=== PATIENT | male | born 1945 | race Caucasian/White ===

== ENCOUNTER 2018-07-24 09:53 | Emergency (ER) | payer MEDICARE ==
--- NOTE | 2018-07-24 10:09 | PHYS DOC ---
Adult General Chief Complaint Chief Complaint: DIZZY/LIGHT HEADED HPI HPI 73-year-old male presents via EMS after at the [facility] of lightheadedness and dizziness. 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 The patient usually is very active and never sits down. He felt like he should sit down at that time. He sat down in the break room and some of the employees came in and did not think that he looked all that good. The boss came in and found the patient should go to the hospital. The patient states that he wasn't having chest pain or headache, just feeling lightheaded mostly. He has not had episodes like this before that he remembers. He is feeling normal at this time. He's been eating and drinking normally. He has not been feeling ill prior to this episode. He denies fever or chills. He does have a history of aortic aneurysm. Review of Systems Review of Systems Constitutional: Denies fever or chills [] Eyes: Denies change in visual acuity, redness, or eye pain [] HENT: Denies nasal congestion or sore throat [] Respiratory: Denies cough or shortness of breath [] Cardiovascular: No additional information not addressed in HPI [] GI: Denies abdominal pain, nausea, vomiting, bloody stools or diarrhea [] : Denies dysuria or hematuria [] Musculoskeletal: Denies back pain or joint pain [] Integument: Denies rash or skin lesions [] Neurologic: Dizziness. Denies headache, focal weakness or sensory changes [] Endocrine: Denies polyuria or polydipsia [] All other systems were reviewed and found to be within normal limits, except as documented in this note. Physical Exam Physical Exam Constitutional: Well developed, well nourished, no acute distress, non-toxic appearance. [] HENT: Normocephalic, atraumatic, bilateral external ears normal, oropharynx moist, no oral exudates, nose normal. [] Eyes: PERRLA, EOMI, conjunctiva normal, no discharge. [] Neck: Normal range of motion, no tenderness, supple, no stridor. [] Cardiovascular:Heart rate regular rhythm, no murmur [] Lungs & Thorax: Bilateral breath sounds clear to auscultation [] Abdomen: Bowel sounds normal, soft, no tenderness, no masses, no pulsatile masses. [] Skin: Warm, dry, no erythema, no rash. [] Back: No tenderness, no CVA tenderness. [] Extremities: No tenderness, no cyanosis, no clubbing, ROM intact, no edema. [] Neurologic: Alert and oriented X 3, normal motor function, normal sensory function, no focal deficits noted. [] Psychologic: Affect normal, judgement normal, mood normal. [] EKG EKG Sinus rhythm, rate 70, leftward axis, no ST elevations or depressions.[] Radiology/Procedures Radiology/Procedures [] Impressions: CT of the head without contrast, 07/24/2018: HISTORY: Dizziness There is mild cerebral atrophy with mild associated prominence of the lateral ventricles. There is no shift of the midline structures. There is no evidence of acute intracranial hemorrhage or mass effect. IMPRESSION: No acute intracranial abnormality is detected. [facility] Compliance Statement: One or more of the following individualized dose reduction techniques were utilized for this examination: 1. Automated exposure control 2. Adjustment of the mA and/or kV according to patient size 3. Use of iterative reconstruction technique Electronically signed by: Carlin Cavazos MD (07/24/2018 10:29 AM) [facility] DICTATED AND SIGNED BY: CARLIN CAVAZOS MD DATE: 07/24/18 1029 CC: ANGEL GAY DO; PCP,NO ~ EXAM: CHEST 1 VIEW History: Dizziness COMPARISON: None available. TECHNIQUE: Single portable radiograph of the chest FINDINGS: The cardiac silhouette is unremarkable. Median sternotomy wires identified. Mild hyperinflated lungs likely changes of COPD. A 9 mm nodule or scar identified in the right upper lobe of the lung. IMPRESSION: 1. A 9 mm nodule or scar identified in the right lung. Otherwise, no acute cardiopulmonary findings. Electronically signed by: Juan Bettencourt MD (07/24/2018 10:45 AM) [facility] DICTATED AND SIGNED BY: JUAN BETTENCOURT MD DATE: 07/24/18 1045 CC: ANGEL GAY DO; PCP,NO ~ Course & Med Decision Making Course & Med Decision Making Pertinent Labs and Imaging studies reviewed. (See chart for details) The patient's head CT is unremarkable. His chest x-ray is remarkable for a 9 mm nodule that could be a scar. Likely COPD changes. He can follow this up with his primary care physician. His labs are unremarkable. His troponin is negative. His EKG is unremarkable. I suspect the patient might have had a run of atrial fibrillation. 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 I have encouraged him to keep that appointment. I will be safely discharged this time. If his symptoms return or new symptoms develop, he will return to the emergency room. [] Dragon Disclaimer Dragon Disclaimer This electronic medical record was generated, in whole or in part, using a voice recognition dictation system. Departure Departure: Impression: Primary Impression: Dizziness Disposition: 01 HOME, SELF-CARE Condition: IMPROVED Referrals: [facility] (PCP) Patient Instructions: Atrial Fibrillation, [id number], Dizziness, [id number] ANGEL GAY DO Jul 24, 2018 10:09
[2018-07-24 10:13] LABS: BASO % 1 % (0-3); EOS # 0.2 x10^3/uL (0.0-0.7); EOS % 3 % (0-3); HEMATOCRIT 43.1 % (39.0-53.0); HEMOGLOBIN 14.7 g/dL (13.0-17.5); LYMPH # 2.1 x10^3/uL (1.0-4.8); LYMPH % 28 % (24-48); MEAN CORPUSCULAR HEMOGLOBIN 32 pg (25-35); MEAN CORPUSCULAR HGB CONC 34 g/dL (31-37); MEAN CORPUSCULAR VOLUME 92 fL (79-100); MONO # 0.7 x10^3/uL (0.0-1.1); MONO % 10 % (0-9); NEUT # 4.3 x10^3uL (1.8-7.7); NEUT % 58 % (31-73); PLATELET COUNT 228 x10^3/uL (140-400); RED BLOOD COUNT 4.67 x10^6/uL (4.30-5.70); WHITE BLOOD COUNT 7.3 x10^3/uL (4.0-11.0)
--- NOTE | 2018-07-24 10:32 | RAD ---
CT of the head without contrast, 07/24/2018: HISTORY: Dizziness There is mild cerebral atrophy with mild associated prominence of the lateral ventricles. There is no shift of the midline structures. There is no evidence of acute intracranial hemorrhage or mass effect. IMPRESSION: No acute intracranial abnormality is detected. [facility] Compliance Statement: One or more of the following individualized dose reduction techniques were utilized for this examination: 1. Automated exposure control 2. Adjustment of the mA and/or kV according to patient size 3. Use of iterative reconstruction technique Electronically signed by: Carlin Girard MD (07/24/2018 10:29 AM) [facility]
[2018-07-24 10:34] LABS: ALBUMIN 3.6 g/dL (3.4-5.0); CALCIUM 9.4 mg/dL (8.5-10.1); CREATININE 1.3 mg/dL (0.7-1.3); GFR 54.3; TOTAL BILIRUBIN 0.5 mg/dL (0.2-1.0); TOTAL PROTEIN 7.3 g/dL (6.4-8.2)
--- NOTE | 2018-07-24 10:40 | EKG ---
[address] [address] Test Date: 2018-07-24 Test Time: 10:30:33 Pat Name: WONG SCHULTE Department: Room: Gender: M Featherer: : 1945 Requested By: ANGEL GAY Order Number: [id number] Reading MD: Yasir Woodson Measurements Intervals [place] Rate: 70 P: 50 SC: 186 QRS: -10 QRSD: 84 T: 25 QT: 388 QTc: 422 Interpretive Statements SINUS RHYTHM LEFTWARD AXIS LOW LIMB LEAD VOLTAGE QRS(T) CONTOUR ABNORMALITY CONSISTENT WITH SEPTAL INFARCT PROBABLY OLD ABNORMAL ECG RI6.01 No previous ECG available for comparison Electronically Signed On 07-27-2018 9:41:05 CDT by Yasir Woodson
--- NOTE | 2018-07-24 10:48 | RAD ---
EXAM: CHEST 1 VIEW History: Dizziness COMPARISON: None available. TECHNIQUE: Single portable radiograph of the chest FINDINGS: The cardiac silhouette is unremarkable. Median sternotomy wires identified. Mild hyperinflated lungs likely changes of COPD. A 9 mm nodule or scar identified in the right upper lobe of the lung. IMPRESSION: 1. A 9 mm nodule or scar identified in the right lung. Otherwise, no acute cardiopulmonary findings. Electronically signed by: Juan Bettencourt MD (07/24/2018 10:45 AM) [facility]
[2018-07-24 12:06] LABS: BILIRUBIN,URINE NEG (NEG); CLARITY,URINE CLEAR; COLOR,URINE YELLOW; GLUCOSE,URINE NEG (NEG); NITRITE,URINE NEG (NEG); UROBILINOGEN,URINE 0.2 mg/dL (0.2 mg/dL)
[2018-07-24 12:07] LABS: BACTERIA,URINE 0 /HPF (0-FEW); RBC,URINE 0 /HPF (0-2); SQUAMOUS EPITHELIAL CELL,UR OCC /LPF; WBC,URINE OCC /HPF (0-4)
[2018-07-24 12:16] VITALS: BP 123/77
== END 2018-07-24 12:15 | disposition home or self-care (01) ==
LOC: ER 09:53
DX: R42 Dizziness and giddiness (principal); R53.83 Other fatigue
CPT/HCPCS: 36415; 70450; 71045; 80053; 81001; 83880; 84484; 85025; 93005; 99285